=== PATIENT | female | born 1995 | race Caucasian/White ===

== ENCOUNTER 2017-08-18 17:10 | Emergency (ER) | payer SELFPAY ==
[2017-08-18 17:11] VITALS: BP 164/95; PULSE 116; RESP 17; TEMP 37.3; O2SAT 99; BMI 38.3
--- NOTE | 2017-08-18 17:29 | RAD_ITS ---
STUDY: X-RAY CHEST REASON FOR EXAM: Female, 21 years old. Confusion TECHNIQUE: Single AP portable view of the chest. COMPARISON: None. FINDINGS: nurse monitoring leads are present. The lungs are clear and expanded. There is no demonstrated pleural abnormality. Normal size heart. Normal mediastinum and everett. Normal visualized pulmonary arteries. Normal visualized aortic arch and descending thoracic aorta. Normal visualized thoracic spine. Normal visualized ribs, clavicles, and shoulders. There is no demonstrated abnormality of the visualized soft tissue structures of the upper abdomen. RAD/Chest 1 View (Portable) IMPRESSION: Normal x-ray examination of the chest. Electronically Signed: Collin Dudley MD at 18:35 EST , Service support ,
--- NOTE | 2017-08-18 17:29 | CT_ITS ---
STUDY: CT BRAIN WITHOUT CONTRAST REASON FOR EXAM: Female, 21 years old. Seizure-like activity, nausea and vomiting RADIATION DOSAGE (If Supplied By Facility): CTDIvol = ( 60.81 ) mGy, DLP = ( 993.89 ) mGycm TECHNIQUE: Transaxial CT imaging of the brain was performed without administration of intravenous contrast material. Individualized dose optimization techniques were used for this CT. COMPARISON: None. FINDINGS: Normal soft tissue structures. Normal calvarium. Normal size ventricles and extra-axial spaces for the patient's age. Normal white matter tracts of the cerebral hemispheres. Normal basal ganglia and thalami. Normal brainstem. Normal cerebellum. There is no intracranial hemorrhage. There are no findings of an acute ischemic infarction. There is a subcentimeter polypoid defect of the right maxillary sinus consistent with a mucoid retention cyst. CT/Brain/Head without Contrast IMPRESSION: Subcentimeter polypoid defect of the right maxillary sinus consistent with a mucoid retention cyst. The study is otherwise unremarkable. Electronically Signed: Collin Dudley MD at 18:35 EST , Service support ,
--- NOTE | 2017-08-18 18:00 | ED.RN ---
PT REPORTS TO THIS RN THAT SHE JUST BROKE UP WITH HER BOYFRIEND TODAY AND HAS MOVED OUT OF HIS HOUSE. STATES SHE IS STAYING WITH A CO WORKER. PT DENIES SI/HI TO THIS RN, BUT REPORTS FEELING SAD. I LOVE HIM, AND IT IS HARD.
[2017-08-18 18:16] LABS: Absolute Lymphocyte Count 1.65 X10^3/ul (0.83-4.51); Absolute Neutrophil Count 10.4 X10^3/uL (2.0-7.7); Basophil# 0.02 X10^3/uL; Basophil% 0.2 % (0-1); Eosinophil# 0.02 X10^3/uL; Eosinophils% 0.2 % (0-5); Hematocrit 41.4 % (37-47); Hemoglobin 13.6 g/dl (12.0-15.0); Lymphocyte # 1.65 X10^3/ul (4.0); Lymphocyte % 12.9 % (19-41); Mean Corp Hgb Conc 32.9 g/gl (32-36); Mean Corpuscular Hgb 28.6 pg (27.0-32.0); Mean Platelet Vol. 10.9 fl (6.2-12.0); Monocyte# 0.62 X10^3/uL; Monocyte% 4.9 % (0-10); Neutrophil # 10.42 X10^3/uL (2.7-7.7); Neutrophil % 81.6 % (47-70); Platelet Count 243 K/mm3 (150-450); RBC Distribution Width CV 12.8 % (11.6-14.6); RBC Distribution Width SD 41.3 fl (35.1-43.9); Red Blood Count 4.76 M/mm3 (4.2-5.4); White Blood Count 12.8 K/mm3 (4.4-11.0)
[2017-08-18 18:17] LABS: POSITIVE COUNT NO; POSITIVE DIFFERENTIAL NO; POSITIVE MORPHOLOGY NO
[2017-08-18 18:27] LABS: Anion Gap 8 (5-15); BUN 7 mg/dL (7-18); BUN/Creat Ratio 11.5 RATIO (10-20); Calcium,Total 9.3 mg/dL (8.5-10.1); Chloride 108 mmol/L (98-107); Creatinine, Serum 0.61 mg/dL (0.55-1.02); EST Glomerular Filtration Rate 133 mL/min (>60); Est Glom Filt Rate - Afr Amer 161 mL/min (>60); Estimated Creatinine Clearance 122.71 ml/min; Glucose 104 mg/dL (70-110); Potassium 3.9 mmol/L (3.5-5.1); Sodium Level 140 mmol/L (136-145)
[2017-08-18] MEDS: 0.9% Normal Saline 1,000 ML 150 ML IV (18:33)
[2017-08-18 18:40] LABS: Pregnancy, Serum, hCG Quali. NEGATIVE Negative (0-9 Nonpreg)
[2017-08-18 18:49] LABS: Red Blood Cells-Urine 0 SEEN /hpf (0-5); White Blood Cells 0 SEEN /hpf (0-5)
[2017-08-18 18:52] LABS: Color, Urine Yellow (Yellow); Glucose, Dipstick Normal (Normal); Leukocyte Esterase-Dipstick 25 /ul (Negative); Nitrite-Dipstick Negative (Negative); Occult Blood-Urine 10 /ul (Negative); Protein-Dipstick Negative (Negative); Urine Bilirubin Dipstick Negative (Negative); Urine Clarity Clear (Clear); Urine Urobilinogen Normal (Normal)
[2017-08-18 18:55] LABS: Ketone-Dipstick 150 mg/dl (Negative)
[2017-08-18 19:00] LABS: Bacteria 1+ /hpf (None Seen); Squamous Epithelial Cells - UA 0-5 SEEN /hpf (5-10)
[2017-08-18 19:01] LABS: Mucous, Urine RARE /hpf (<or=2+)
[2017-08-18 19:12] LABS: Amphetamine Urine VISTA NEGATIVE (<1000 ng/mL); Barbiturate Urine VISTA NEGATIVE (< 200 ng/mL); Benzodiazepine Urine VISTA NEGATIVE (< 200 ng/mL); Cocaine Urine VISTA NEGATIVE (< 300 ng/mL); Ecstacy Urine VISTA NEGATIVE (< 500 ng/mL); Methadone Urine VISTA NEGATIVE (< 300 ng/mL); PCP Urine VISTA NEGATIVE (< 25 ng/mL); THC Urine VISTA NEGATIVE (< 50 ng/mL); Vista UDS pH Range 5
[2017-08-18 19:15] VITALS: PULSE 112; RESP 17; O2SAT 99
--- NOTE | 2017-08-18 19:27 | ED.VISSUMM ---
- ER Visit Summary Date of Service: 08/18/17 Chief Complaint: [Syncope and possible seizure] History of Present Illness: The patient is a 21 F [resents to the emergency department via EMS. EMS was called out to the patient's location by her friends for possible seizure activity. On their arrival patient was awake and alert and they did not witness any seizure activity. Patient apparently broke up with her boyfriend and moved out of his house today and has been under a lot of stress. Patient states that she had gone outside to smoke and got very nauseated so she went into the bathroom and remembers vomiting and then developing a left-sided bloody nose. The next thing the patient remembers is EMS coming into the room where the patient was. None of the patient's friends are here to tell me what they witnessed. On arrival to the emergency department patient really has no complaints. She denies recent illness. Patient states that she was diagnosed with high blood pressure yesterday after having some nosebleeds and visiting [facility] where she had a test done that was negative.] No recent illness. Patient denies being suicidal or homicidal. Physical Examination: [HEENT-PERRLA, EOMI. Cranial nerves II through XII grossly intact. TMs clear. Mucous membranes moist. No adenopathy. No bite wounds noted to the tongue or oral mucosa. Cardiovascular-regular rate and rhythm without murmur or ectopy Lungs-clear to auscultation, chest wall stable without crepitus or subcu emphysema Abdomen-normoactive bowel sounds, soft, nontender, no rebound or rigidity, no peritoneal signs. Neuro sjhq-kvktuy-oqou and heel villanueva testing within normal limits, negative Romberg, negative pronator drift, fundi benign Extremities-intact ?4, normal range of motion, normal pulses, atraumatic] Test Results: [CT scan of the brain without contrast was normal. CBC with differential for white count 12.8, hemoglobin 13.6, hematocrit 41, platelets 243. Chemistries were normal. Urinalysis was normal. HCG was negative. Toxicology screen was negative.] Emergency Department Course and Treatment: [Patient did receive a GI cocktail for some GERD complaints.] Treatment Plan: [At this point I do not suspect patient had a seizure but rather may have had a vagal syncopal episode.] Disposition: [Discharged to home in stable condition. Patient advised to follow-up with physician solution lead for no doc within next 3-5 days.] Impression: [Syncope-suspect vasovagal episode] This note was generated with [employer] dictation software. It may contain incorrect words, spelling, and punctuation that were not noted in review of the chart prior to signing ED Disposition - Plan for ED Patient: Chief Complaint: Alt LOC Referrals: Care Physician,No Primary [Primary Care Provider] -
[2017-08-18 19:28] VITALS: BP 149/87; PULSE 114; RESP 18; O2SAT 97
--- NOTE | 2017-08-18 19:31 | ED.DCSUM_ITS ---
- ER Visit Summary Date of Service: 08/18/17 Chief Complaint: [Syncope and possible seizure] History of Present Illness: The patient is a 21 F [resents to the emergency department via EMS. EMS was called out to the patient's location by her friends for possible seizure activity. On their arrival patient was awake and alert and they did not witness any seizure activity. Patient apparently broke up with her boyfriend and moved out of his house today and has been under a lot of stress. Patient states that she had gone outside to smoke and got very nauseated so she went into the bathroom and remembers vomiting and then developing a left-sided bloody nose. The next thing the patient remembers is EMS coming into the room where the patient was. None of the patient's friends are here to tell me what they witnessed. On arrival to the emergency department patient really has no complaints. She denies recent illness. Patient states that she was diagnosed with high blood pressure yesterday after having some nosebleeds and visiting [facility] where she had a test done that was negative.] No recent illness. Patient denies being suicidal or homicidal. Physical Examination: [HEENT-PERRLA, EOMI. Cranial nerves II through XII grossly intact. TMs clear. Mucous membranes moist. No adenopathy. No bite wounds noted to the tongue or oral mucosa. Cardiovascular-regular rate and rhythm without murmur or ectopy Lungs-clear to auscultation, chest wall stable without crepitus or subcu emphysema Abdomen-normoactive bowel sounds, soft, nontender, no rebound or rigidity, no peritoneal signs. Neuro anra-kfwwhc-vvzz and heel villanueva testing within normal limits, negative Romberg, negative pronator drift, fundi benign Extremities-intact ?4, normal range of motion, normal pulses, atraumatic] Test Results: [CT scan of the brain without contrast was normal. CBC with differential for white count 12.8, hemoglobin 13.6, hematocrit 41, platelets 243. Chemistries were normal. Urinalysis was normal. HCG was negative. Toxicology screen was negative.] Emergency Department Course and Treatment: [Patient did receive a GI cocktail for some GERD complaints.] Treatment Plan: [At this point I do not suspect patient had a seizure but rather may have had a vagal syncopal episode.] Disposition: [Discharged to home in stable condition. Patient advised to follow -up with physician control panel assembler for no doc within next 3-5 days.] Impression: [Syncope-suspect vasovagal episode] This note was generated with [employer] dictation software. It may contain incorrect words, spelling, and punctuation that were not noted in review of the chart prior to signing ED Disposition - Plan for ED Patient: Chief Complaint: Alt LOC Referrals: Care Physician,No Primary [Primary Care Provider] -
--- NOTE | 2017-08-18 19:31 | ED.DEP ---
ED Disposition - Plan for ED Patient: Chief Complaint: Alt LOC Instructions: ED Fainting Unkn Cause, ED Syncope Vasovagal Referrals: Care Physician,No Primary [Primary Care Provider] - Navin Garnica DO [NON-STAFF] - 3-5 Days
== END 2017-08-18 19:33 | disposition home or self-care (01) ==
LOC: ED 18:38
PROVIDERS: Emergency Provider Emergency Medicine
DX: R55 Syncope and collapse (principal); R11.2 Nausea with vomiting, unspecified; I10 Essential (primary) hypertension; R04.0 Epistaxis; K21.9 Gastro-esophageal reflux disease without esophagitis; F17.200 Nicotine dependence, unspecified, uncomplicated; Z79.899 Other long term (current) drug therapy
CPT/HCPCS: 70450; 71045; 80048; 80307; 81001; 84703; 85025; 96360; 99285; J7050; A4216

== ENCOUNTER 2017-09-20 14:01 | Emergency (ER) | payer BC, SELFPAY ==
[2017-09-20 14:01] VITALS: BP 143/76; PULSE 98; RESP 18; TEMP 36.6; O2SAT 95; BMI 38.0
--- NOTE | 2017-09-20 15:01 | CT_ITS ---
STUDY: CT ABDOMEN AND PELVIS WITHOUT CONTRAST REASON FOR EXAM: Female, 21 years old. LEFT FLANK PAIN AND HEMATURIA RADIATION DOSAGE (If Supplied By Facility): CTDIvol = ( 16.33 ) mGy, DLP = ( 873.22 ) mGycm TECHNIQUE: Transaxial images were obtained from the dome of the diaphragm to the symphysis pubis without oral contrast, and without intravenous contrast. Sagittal and coronal images were reconstructed. Individualized dose optimization techniques were used for this CT. COMPARISON: None. FINDINGS: The visualized lung bases are unremarkable. The visualized portions of the heart are within normal limits. Normal liver. Normal gallbladder and extrahepatic biliary system. Normal spleen. Normal pancreas. Normal bilateral adrenal glands. Normal right kidney. Normal left kidney. Normal visualized stomach. Normal small intestine. Stool throughout the colon. The appendix is visualized and appears normal. Normal abdominal aorta. Normal inferior vena cava. Normal retroperitoneum. Normal urinary bladder. Normal visualized uterus. Ovaries are normal. There is free fluid in the pelvis. This can be physiologic. Large amount of stool in the rectal vault can suggest constipation. Normal abdominal wall. Normal osseous structures. CT/Abdomen/Pelvis without Cont IMPRESSION: There is free fluid in the pelvis. This can be physiologic. Constipation There are no renal stones. There is no hydronephrosis. Electronically Signed: Lambert Romero MD at 16:24 EST , Service support ,
--- NOTE | 2017-09-20 15:17 | ED.VISSUMM ---
- ER Visit Summary Date of Service: 09/20/17 Chief Complaint: Left flank pain, hematuria History of Present Illness: The patient is a 21 F has had left flank pain for about 1 month. She describes aching pains in her left flank that radiated to her left side of her abdomen. She has had some urinary frequency. She denies dysuria or gross hematuria. She went to an urgent care today and they noted some microscopic hematuria so they sent her here for evaluation. No history of kidney stones. She has not had a fever no nausea or vomiting Physical Examination: Vital signs reviewed. HEENT exam unremarkable. Heart is regular rate and rhythm without murmurs. Lungs are clear to auscultation. Abdomen is soft with tenderness in the left flank area. She also has tenderness in the epigastric region. Extremities reveal no edema. Skin exam normal. Neurologic exam normal. Test Results: Laboratory studies are normal except for some trace blood in her urine. HCG negative. CAT scan reveals constipation with some physiologic free fluid in the pelvis Emergency Department Course and Treatment: She was given Toradol and Zofran. No evidence of any kidney stones. She has a very mild amount of blood in her urine. Patient will be discharged with naproxen for pain. She will be given a PCP for follow-up Treatment Plan: [] Disposition: Discharge Impression: Flank pain This note was generated with [employer] dictation software. It may contain incorrect words, spelling, and punctuation that were not noted in review of the chart prior to signing ED Disposition - Plan for ED Patient: Chief Complaint: Flank Pain Referrals: Care Physician,No Primary [Primary Care Provider] -
[2017-09-20 15:23] LABS: Absolute Lymphocyte Count 1.76 X10^3/ul (0.83-4.51); Absolute Neutrophil Count 6.2 X10^3/uL (2.0-7.7); Basophil# 0.02 X10^3/uL; Basophil% 0.2 % (0-1); Eosinophil# 0.07 X10^3/uL; Eosinophils% 0.8 % (0-5); Hematocrit 41.6 % (37-47); Hemoglobin 13.4 g/dl (12.0-15.0); Lymphocyte # 1.76 X10^3/ul (4.0); Lymphocyte % 20.6 % (19-41); Mean Corp Hgb Conc 32.2 g/gl (32-36); Mean Corpuscular Hgb 28.1 pg (27.0-32.0); Mean Corpuscular Volume 87.2 fL (81-99); Monocyte# 0.52 X10^3/uL; Monocyte% 6.1 % (0-10); Neutrophil # 6.16 X10^3/uL (2.7-7.7); Neutrophil % 72.3 % (47-70); Platelet Count 263 K/mm3 (150-450); RBC Distribution Width CV 13.3 % (11.6-14.6); RBC Distribution Width SD 42.5 fl (35.1-43.9); Red Blood Count 4.77 M/mm3 (4.2-5.4); White Blood Count 8.5 K/mm3 (4.4-11.0)
[2017-09-20 15:27] LABS: POSITIVE COUNT NO; POSITIVE DIFFERENTIAL NO; POSITIVE MORPHOLOGY NO
[2017-09-20 15:30] LABS: Anion Gap 8 (5-15); BUN 10 mg/dL (7-18); BUN/Creat Ratio 12.9 RATIO (10-20); Calcium,Total 8.9 mg/dL (8.5-10.1); Chloride 108 mmol/L (98-107); Creatinine, Serum 0.78 mg/dL (0.55-1.02); EST Glomerular Filtration Rate 100 mL/min (>60); Est Glom Filt Rate - Afr Amer 122 mL/min (>60); Estimated Creatinine Clearance 95.96 ml/min; Glucose 86 mg/dL (74-106); Potassium 3.8 mmol/L (3.5-5.1); Sodium Level 142 mmol/L (136-145)
[2017-09-20 15:38] LABS: Color, Urine Yellow (Yellow); Glucose, Dipstick Normal (Normal); Ketone-Dipstick Negative (Negative); Leukocyte Esterase-Dipstick Negative /ul (Negative); Nitrite-Dipstick Negative (Negative); Occult Blood-Urine 25 /ul (Negative); Protein-Dipstick Negative (Negative); Specific Gravity, Urine 1.015 (1.002-1.030); Urine Bilirubin Dipstick Negative (Negative); Urine Clarity Sl. Cloudy (Clear); Urine Urobilinogen Normal (Normal)
[2017-09-20 15:46] LABS: Mucous, Urine 0 SEEN /hpf (<or=2+); Red Blood Cells-Urine 0 SEEN /hpf (0-5)
[2017-09-20] MEDS: Ondansetron 4 MG/2 ML Vial IV (15:46)
[2017-09-20 15:47] LABS: Bacteria 3+ /hpf (None Seen); Squamous Epithelial Cells - UA 0-5 SEEN /hpf (5-10); White Blood Cells 0-5 SEEN /hpf (0-5)
[2017-09-20] MEDS: 0.9% Normal Saline 1,000 ML 250 ML IV (15:47)
[2017-09-20] MEDS: Ketorolac 30 MG/ML Syringe IV (15:47)
[2017-09-20 15:48] LABS: Amorphous Sediment 3+
[2017-09-20 15:49] LABS: Pregnancy, Serum, hCG Quali. NEGATIVE Negative (0-9 Nonpreg)
--- NOTE | 2017-09-20 16:55 | ED.DEP ---
ED Disposition - Plan for ED Patient: Disposition: Home or Assisted Living Chief Complaint: Flank Pain Instructions: ED Flank Pain Uncertain Cause Prescriptions: Naproxen [Naprosyn] 500 mg PO BID PRN #20 tab Referrals: Care Physician,No Primary [Primary Care Provider] -
[2017-09-20 17:04] VITALS: BP 131/74; PULSE 80; RESP 15; O2SAT 99
== END 2017-09-20 17:10 | disposition home or self-care (01) ==
PROVIDERS: Emergency Provider Emergency Medicine
DX: R10.9 Unspecified abdominal pain (principal); K59.00 Constipation, unspecified; R35.0 Frequency of micturition; R31.9 Hematuria, unspecified; K21.9 Gastro-esophageal reflux disease without esophagitis; Z72.0 Tobacco use
CPT/HCPCS: 74176; 80048; 81001; 84703; 85025; 96361; 96374; 96375; 99283; J7030; A4216; J2405

== ENCOUNTER 2017-09-22 23:38 | Emergency (ER) | payer BC, SELFPAY ==
[2017-09-22 23:43] VITALS: BP 139/71; PULSE 99; RESP 18; TEMP 37; O2SAT 99; BMI 38.5
--- NOTE | 2017-09-22 23:49 | US_ITS ---
STUDY: ULTRASOUND GALLBLADDER REASON FOR VISIT: Female, 21 years old. Right upper quadrant pain and vomiting. TECHNIQUE: Ultrasound evaluation of the gallbladder was performed with real-time and static olvera-scale imaging. TECHNICAL QUALITY: Adequate. COMPARISON: CT abdomen and pelvis September 20, 2017. FINDINGS: Gallbladder: Normal distended gallbladder. The gallbladder wall measures 3 mm. There is a negative sonographic Porter's sign. There is no pericholecystic fluid. There are no gallstones. Common Bile Duct (C.B.D.): The common bile duct measures 3 mm. Liver measures 17.3 cm in greatest length. Normal echogenicity. Normal hepatic flow. Pancreas is normal. Right kidney measures 11.6 cm in greatest length without hydronephrosis. Renal cortex measures 1.4 cm. US/Gallbladder IMPRESSION: Normal gallbladder ultrasound examination. Normal right upper quadrant ultrasound. Electronically Signed: Woodrow Ramirez MD at 1:00 EST , Service support ,
[2017-09-23] MEDS: 0.9% Normal Saline 1,000 ML 1000 ML IV (00:39)
[2017-09-23 00:46] LABS: Absolute Neutrophil Count 7.3 X10^3/uL (2.0-7.7); Basophil# 0.02 X10^3/uL; Basophil% 0.2 % (0-1); Eosinophils% 0.9 % (0-5); Hematocrit 40.3 % (37-47); Hemoglobin 12.8 g/dl (12.0-15.0); Lymphocyte % 24.2 % (19-41); Mean Corp Hgb Conc 31.8 g/gl (32-36); Mean Corpuscular Hgb 27.8 pg (27.0-32.0); Mean Corpuscular Volume 87.4 fL (81-99); Monocyte# 0.69 X10^3/uL; Monocyte% 6.4 % (0-10); Neutrophil # 7.31 X10^3/uL (2.7-7.7); Neutrophil % 68.1 % (47-70); Platelet Count 260 K/mm3 (150-450); RBC Distribution Width CV 13.6 % (11.6-14.6); RBC Distribution Width SD 43.3 fl (35.1-43.9); Red Blood Count 4.61 M/mm3 (4.2-5.4); White Blood Count 10.7 K/mm3 (4.4-11.0)
[2017-09-23 00:47] LABS: POSITIVE COUNT NO; POSITIVE DIFFERENTIAL NO; POSITIVE MORPHOLOGY NO
[2017-09-23 01:18] LABS: Mucous, Urine 0 SEEN /hpf (<or=2+)
[2017-09-23 01:20] LABS: Color, Urine Yellow (Yellow); Glucose, Dipstick Normal (Normal); Ketone-Dipstick Negative (Negative); Leukocyte Esterase-Dipstick 25 /ul (Negative); Nitrite-Dipstick Negative (Negative); Occult Blood-Urine 10 /ul (Negative); Protein-Dipstick 30 mg/dl (Negative); Specific Gravity, Urine 1.025 (1.002-1.030); Urine Bilirubin Dipstick Negative (Negative); Urine Clarity Clear (Clear); Urine Urobilinogen 1 mg/dl (Normal)
[2017-09-23 01:26] LABS: Internal QC Validated? YES +Cl - CLEAR BKGD; Pregnancy, Urine Negative Negative
[2017-09-23 01:28] LABS: Bacteria RARE /hpf (None Seen); Red Blood Cells-Urine 0-5 SEEN /hpf (0-5); Squamous Epithelial Cells - UA 0-5 SEEN /hpf (5-10); White Blood Cells 0-5 SEEN /hpf (0-5)
[2017-09-23 01:34] LABS: ALB/GLOB Ratio 1.2 RATIO (0.9-2.4); AST(SGOT) 16 U/L (15-37); Alanine Aminotransfer ALT/SGPT 17 U/L (13-56); Alkaline Phosphatase 73 U/L (45-117); Anion Gap 6 (5-15); BUN 13 mg/dL (7-18); Calcium,Total 8.3 mg/dL (8.5-10.1); Chloride 110 mmol/L (98-107); Creatinine, Serum 0.69 mg/dL (0.55-1.02); EST Glomerular Filtration Rate 116 mL/min (>60); Est Glom Filt Rate - Afr Amer 141 mL/min (>60); Estimated Creatinine Clearance 108.48 ml/min; Globulin 3.2 g/dL (2.2-4.2); Glucose 81 mg/dL (74-106); Lipase 141 U/L (73-393); Potassium 3.7 mmol/L (3.5-5.1); Protein, Total 7.2 g/dL (6.4-8.2); Sodium Level 143 mmol/L (136-145)
--- NOTE | 2017-09-23 02:05 | ED.VISSUMM ---
- ER Visit Summary Date of Service: 09/23/17 Chief Complaint: [Nausea vomiting abdominal pain] History of Present Illness: The patient is a 21 F [who presents with nausea vomiting and abdominal pain. She states that she started vomiting about 6 PM this evening and has vomited several times. She also has some epigastric bilateral upper quadrant and back pain. This was made much worse after eating [employer] for dinner. No sick contacts no fevers or chills she does complain of a headache. She has hypertension anxiety depression and acid reflux she does smoke. She denies alcohol.] Physical Examination: [] Afebrile vital signs within acceptable limits WN WD NAD PERRL EOMI MMM NECK supple and nontender, no masses RRR no murmur rub or gallop, no peripheral edema, symmetric radial pulses CTAB no respiratory distress ABDOMEN is soft she has tenderness in the epigastric and right upper quadrant, normal bowel sounds, no distension, no rebound or guarding SKIN is warm and dry no rashes Alert and Oriented x3, CN II-XII in tact, no motor or sensory deficits, gait normal No lymphadenopathy Test Results: [] Emergency Department Course and Treatment: [Patient was given Phenergan. She was given fluids because of vomiting. Screening labs are unremarkable. Urine does not show any evidence of infection. is negative. Right upper quadrant ultrasound was normal. Patient is sleeping comfortably on reevaluation with an empty Coke can and trail mix package at her bedside. At this time I think she safely discharged home. She will be given a prescription for Zofran. She was given precautions for which to return and encouraged to follow-up with her primary care physician] Treatment Plan: [] Disposition: [Discharge] Impression: [Abdominal pain 2 vomiting] This note was generated with [employer] dictation software. It may contain incorrect words, spelling, and punctuation that were not noted in review of the chart prior to signing ED Disposition - Plan for ED Patient: Chief Complaint: Nausea/Vomiting Referrals: Care Physician,No Primary [Primary Care Provider] -
--- NOTE | 2017-09-23 02:08 | ED.DEP ---
ED Disposition - Plan for ED Patient: Chief Complaint: Nausea/Vomiting Instructions: ED Nausea Vomiting, ED Abdominal Pain Unkn Cause Prescriptions: Ondansetron [Zofran Odt] 4 mg PO Q8H PRN PRN #10 tablet PRN Reason: Vomiting Referrals: Cipriano Jin MD [STAFF PHYSICIAN] - 5-7 Days
[2017-09-23 02:28] VITALS: BP 118/71; PULSE 93; RESP 16; O2SAT 97
--- NOTE | 2017-09-23 03:28 | NURSING ---
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
== END 2017-09-23 03:29 | disposition home or self-care (01) ==
PROVIDERS: Emergency Provider Emergency Medicine
DX: R10.13 Epigastric pain (principal); R10.11 Right upper quadrant pain; R11.2 Nausea with vomiting, unspecified; I10 Essential (primary) hypertension; M54.9 Dorsalgia, unspecified; K21.9 Gastro-esophageal reflux disease without esophagitis; E66.9 Obesity, unspecified; F17.210 Nicotine dependence, cigarettes, uncomplicated
CPT/HCPCS: 76705; 80053; 81001; 81025; 83690; 85025; 96361; 96374; 99285; J7030; A4216